=== PATIENT | female | born 1955 | race Caucasian/White ===

== ENCOUNTER 2018-12-01 00:47 | Emergency (ER) | payer MEDICARE ==
[~2018-12-01] VITALS: Ht 177.8 cm; Wt 120.2 kg
[~2018-12-01 00:47] MED LIST: AMLODIPINE BESYL5 M1 PO; BACTRIM DS TAB1 EACH PO; CRESTOR; DIFLUCAN150 MG PO; FLEXERIL PO; KEFLEX500 MG PO; NORCO 5-325 TA1 EAC1 PO; NORCO 5-325 TA1 EACH PO; TRAMADOL 50 MG50 MG PO; UNKNOWN CHOLESTEROL; ZESTRIL
[2018-12-01] MEDS ORDERED: NORVASC10 MG PO (01:04)
[2018-12-01] MEDS ORDERED: IBUPROFEN 600600 M1 PO (01:05)
[2018-12-01 01:40] VITALS: BP 168/98
== END 2018-12-01 01:40 | disposition home or self-care (01) ==
LOC: M.ERS 00:47
DX: S61.511A Laceration without foreign body of right wrist, initial encounter (principal); S80.02XA Contusion of left knee, initial encounter; I10 Essential (primary) hypertension; E78.00 Pure hypercholesterolemia, unspecified; F17.200 Nicotine dependence, unspecified, uncomplicated; Z98.890 Other specified postprocedural states; W18.39XA Other fall on same level, initial encounter; Y92.89 Other specified places as the place of occurrence of the external cause; Y93.61 Activity, american tackle football; Y99.8 Other external cause status

== ENCOUNTER 2019-07-10 13:20 | Emergency (ER) | payer MEDICARE ==
[~2019-07-10] VITALS: Ht 177.8 cm; Wt 104.3 kg
[~2019-07-10 13:20] MED LIST changes: +IBUPROFEN 600600 M1 PO; +NORVASC10 MG PO
[2019-07-10] MEDS ORDERED: KEFLEX500 M1 PO (14:33)
[2019-07-10 14:40] VITALS: BP 149/98
== END 2019-07-10 14:40 | disposition home or self-care (01) ==
LOC: M.ERS 13:20
DX: S51.012A Laceration without foreign body of left elbow, initial encounter (principal); I10 Essential (primary) hypertension; E78.00 Pure hypercholesterolemia, unspecified; W51.XXXA Accidental striking against or bumped into by another person, initial encounter; Y93.89 Activity, other specified; Y92.89 Other specified places as the place of occurrence of the external cause; Y99.8 Other external cause status

== ENCOUNTER 2019-07-23 17:40 | Emergency (ER) | payer MEDICARE ==
[~2019-07-23] VITALS: Ht 177.8 cm; Wt 95.3 kg
[~2019-07-23 17:40] MED LIST changes: +KEFLEX500 M1 PO
[2019-07-23] MEDS ORDERED: KEFLEX500 M2 PO (18:02)
[2019-07-23] MEDS ORDERED: DAKIN'S473 M2 TOP (18:02)
[2019-07-23 18:50] VITALS: BP 126/70
== END 2019-07-23 18:51 | disposition home or self-care (01) ==
LOC: M.ERS 17:40
DX: S51.012A Laceration without foreign body of left elbow, initial encounter (principal); I10 Essential (primary) hypertension; E78.00 Pure hypercholesterolemia, unspecified; X58.XXXA Exposure to other specified factors, initial encounter; Y93.89 Activity, other specified; Y92.89 Other specified places as the place of occurrence of the external cause; Y99.8 Other external cause status

== ENCOUNTER → 2019-08-05 | Outpatient (CLI) | payer MEDICARE ==
[~2019-08-05] MED LIST changes: +DAKIN'S473 M2 TOP; +KEFLEX500 M2 PO
== END ==
LOC: M.WC 07-30 08:00
DX: T86.828 Other complications of skin graft (allograft) (autograft) (principal); S51.002A Unspecified open wound of left elbow, initial encounter; H26.9 Unspecified cataract; E66.01 Morbid (severe) obesity due to excess calories; F32.9 Major depressive disorder, single episode, unspecified; F17.290 Nicotine dependence, other tobacco product, uncomplicated; Z68.31 Body mass index [BMI] 31.0-31.9, adult; Y83.2 Surgical operation with anastomosis, bypass or graft as the cause of abnormal reaction of the patient, or of later complication, without mention of misadventure at the time of the procedure; W18.09XA Striking against other object with subsequent fall, initial encounter; Y93.89 Activity, other specified; Y92.89 Other specified places as the place of occurrence of the external cause; Y99.8 Other external cause status

== ENCOUNTER → 2019-08-19 | Outpatient (CLI) | payer MEDICARE | LOC: M.WC 04:37 | DX: T81.30XD Disruption of wound, unspecified, subsequent encounter (principal); S51.002D Unspecified open wound of left elbow, subsequent encounter; H26.9 Unspecified cataract; E66.01 Morbid (severe) obesity due to excess calories; F32.9 Major depressive disorder, single episode, unspecified; F17.200 Nicotine dependence, unspecified, uncomplicated; Z68.31 Body mass index [BMI] 31.0-31.9, adult; X58.XXXD Exposure to other specified factors, subsequent encounter; Y83.8 Other surgical procedures as the cause of abnormal reaction of the patient, or of later complication, without mention of misadventure at the time of the procedure ==

== ENCOUNTER → 2019-11-19 | Outpatient (CLI) | payer MEDICARE | LOC: M.RAD 11-06 10:39 | PROVIDERS: ATTEND Family Medicine | DX: Z12.31 Encounter for screening mammogram for malignant neoplasm of breast (principal); N60.82 Other benign mammary dysplasias of left breast; N60.81 Other benign mammary dysplasias of right breast; M43.16 Spondylolisthesis, lumbar region; M25.78 Osteophyte, vertebrae; M48.061 Spinal stenosis, lumbar region without neurogenic claudication; M54.16 Radiculopathy, lumbar region; N30.90 Cystitis, unspecified without hematuria; K76.0 Fatty (change of) liver, not elsewhere classified; R63.4 Abnormal weight loss; R23.8 Other skin changes; R10.32 Left lower quadrant pain; R29.6 Repeated falls; M54.5 Low back pain ==

== ENCOUNTER 2019-11-25 20:28 | Inpatient (IN) | payer MEDICARE ==
[~2019-11-25] VITALS: Ht 177.8 cm; Wt 107.4 kg
[2019-11-25 20:33] VITALS: BP 135/98
[2019-11-25] MEDS ORDERED: NEURONTIN 300M300 M2 PO (20:35)
[2019-11-25] MEDS ORDERED: FOLIC ACID1 MG PO (20:35)
[2019-11-25 22:13] LABS: ABSOLUTE BASOPHILS 0.2 thou/uL (0.0-0.2); ABSOLUTE EOSINOPHILS 0.1 thou/uL (0.0-0.7); ABSOLUTE LYMPHOCYTES 1.6 thou/uL (0.8-5.3); ABSOLUTE MONOCYTES 1.1 thou/uL (0.0-1.2); ABSOLUTE NEUTROPHILS 13.3 thou/uL (1.6-8.1); BASOPHILS 1.3 %; EOSINOPHILS 0.4 %; HEMATOCRIT 26.8 % (37.0-47.0); HEMOGLOBIN 9.3 gm/dL (12.0-15.0); LYMPHOCYTES 9.9 %; MCH 45.9 pg (26.0-34.0); MCHC 34.5 g/dL (28.0-37.0); MCV 133.1 fL (80.0-100.0); MONOCYTES 6.6 %; MPV 8.2 fl. (7.2-11.1); NUCLEATED RBCS 0 /100WBC; PLATELET COUNT* 271 thou/uL (150-400); POLYS 81.8 %; RBC 2.02 mil/uL (4.20-5.00); RDW-CV 14.8 % (10.5-14.5); WBC 16.3 thou/uL (4.0-11.0)
[2019-11-25 22:22] LABS: CALCIUM 7.9 mg/dL (8.5-10.1); CREATININE 1.3 mg/dL (0.6-1.3)
[2019-11-25 22:24] LABS: INR 1.3; PROTIME 13.6 Seconds (9.20-11.50)
[2019-11-25 22:28] LABS: POTASSIUM 2.9 mmol/L (3.5-5.1)
[2019-11-25 22:33] LABS: ALBUMIN 2.4 g/dL (3.4-5.0); MAGNESIUM 1.3 mg/dL (1.8-2.4); TOTAL PROTEIN 6.1 g/dL (6.4-8.2)
[2019-11-26] VITALS (8 sets, daily range): BP systolic 90–125; BP diastolic 55–83
[2019-11-26 00:15] LABS: MACROCYTES 3+; PLATELET ESTIMATE ADEQUATE; TARGET CELLS 1+
[2019-11-26 00:46] LABS: ICTOTEST (BILI CONFIRMATORY) Negative (Negative); URINE BILIRUBIN 2+ (Negative); URINE BLOOD 3+ (Negative); URINE CLARITY CLEAR; URINE COLOR DARK YELLOW; URINE GLUCOSE-RANDOM NEGATIVE (Negative); URINE KETONES TRACE (Negative); URINE LEUKOCYTES-REFLEX TRACE (Negative); URINE NITRITE-REFLEX POSITIVE (Negative); URINE PROTEIN 1+ (Negative)
[2019-11-26 01:30] LABS: HYALINE CASTS 4-10 Moderate /LPF (None Seen); SQUAMOUS 4-10 Moderate /LPF (0-3)
[2019-11-26 01:31] LABS: BACTERIA-REFLEX >30 Many /HPF (None Seen); CRYSTALS None Seen /LPF (None Seen); URINE RBC 3-10 Few /HPF (0-2); URINE WBC-REFLEX >25 Many /HPF (0-5)
--- NOTE | 2019-11-26 11:19 | NUR ---
Pt is A&O. Resides at home with her twin grandsons, states that she has raised them since . Normally independent, but states that over the past 3 months, she has experienced falls and increased weakness, Pt states that she has a hard time standing for long periods of time. Grandsons assist with ADLs as needed. Pt states that she was at [facility] yesterday and fell twice. PT/OT evals ordered. Pt has a cane at home that she can use, but states that she does not feel safe using it. No hx of HH or SNF. Pt's PCP is Dr Gu in [place]. Cardiology and neuro consulted. Goal is home, following for HH needs at [place].
--- NOTE | 2019-11-26 11:33 | EKG ---
[place] [address] ELECTROCARDIOGRAM REPORT Name: LINDSEY LUKEHAIDER Ruelas Room: [address] ADM IN [facility].#: [id number] Admission: 11/26/19 Attend Phys: Wes West, Discharge: Date of : 57 Date of Service: 11/25/192041 Report #: [id number] THIS REPORT FOR: //name// [facility] ED Test Date: 2019-11-25 Test Time: 20:42:15 Pat Name: ARIK LUKE Department: Room: [facility] Gender: F Programming Development Project Manager: JOCY : 1955 Requested By: Aicha Gomez Order Number: [id number] MD: Yordy Dowling Measurements Intervals [place] Rate: 145 P: ID: QRS: 10 QRSD: 89 T: 204 QT: 307 QTc: 477 Interpretive Statements Atrial fibrillation Repol abnrm suggests ischemia, anterolateral No previous ECG available for comparison Electronically Signed On 11-26-2019 11:33:12 CDT by Yordy Dowling [email or web address] <ELECTRONICALLY SIGNED> By: Yordy Dowling MD, FACC 11/26/19 1133 41 41 Yordy Dowling MD, FAC /EPI
--- NOTE | 2019-11-26 14:42 | 2DMMODE ---
[place] [address] 2 D/M-MODE ECHOCARDIOGRAM Name: LINDSEY LUKEHAIDER Ruelas Room: [address] IN [place]#: [id number] Admission: 11/26/19 Attend Phys: Wes West, Discharge: Date of : 57 Date of Service: 11/26/19 1442 Report #: [id number] THIS REPORT FOR: cc: FAM - No family physician/PCP FAM - No family physician/PCP Yordy Dowling MD [facility] ~ APPROVED REPORT Study performed: 11/26/2019 10:53:43 EXAM: Comprehensive 2D, Doppler, and color-flow Echocardiogram Patient Location: In-Patient Room #: 209 Status: routine BSA: 2.24 HR: 75 bpm BP: 112/70 mmHg Rhythm: Atrial Fibrillation Other Information Study Quality: Good Indications Atrial Fibrillation 2D Dimensions IVSd: 13.45 (7-11mm) LVOT Diam: 20.82 (18-24mm) LVDd: 50.83 mm PWd: 12.73 (7-11mm) Ascending Ao: 36.43 (22-36mm) LVDs: 35.15 (25-40mm) Aortic Root: 31.54 mm Volumes Left Atrial Volume (Systole) LA ESV Index: 38.90 mL/m2 Aortic Valve AoV Peak Junior.: 1.47 m/s AO Peak Gr.: 8.68 mmHg LVOT Max P.72 mmHg AO Mean Gr.: 4.51 mmHg LVOT Mean P.62 mmHg LVOT Max V: 1.20 m/s AO V2 VTI: 23.22 cm LVOT Mean V: 0.74 m/s KEV (VTI): 3.28 cm2 LVOT V1 VTI: 22.40 [place] [address] 2 D/M-MODE ECHOCARDIOGRAM Name: ARIK LUKE Room: [address] IN [facility]#: [id number] Admission: 11/26/19 Attend Phys: Wes West, Discharge: Date of : 57 Date of Service: 11/26/19 1442 Report #: [id number] Mitral Valve MV Decel. Time: 204.39 ms MV PHT: 59.27 ms MVA (PHT): 3.71 cm2 TDI Medial E' Junior.: 0.22 m/s Lateral E' Junior.: 0.15 m/s Pulmonary Valve PV Peak Junior.: 0.91 m/s PV Peak Gr.: 3.29 mmHg Tricuspid Valve RAP Estimate: 5.00 mmHg TR Peak Gr.: 22.64 mmHg RVSP: 27.00 mmHg PA Pressure: 27.00 mmHg Left Ventricle The left ventricle is normal size. There is normal LV segmental wall motion. Mild concentric left ventricular hypertrophy. Left ventricular systolic function is normal. LVEF is 60-65%. This study is not technically sufficient to allow evaluation of the LV diastolic function due to atrial fibrillation. Right Ventricle The right ventricle is normal size. The right ventricular systolic function is normal. Atria Left atrium is mildly dilated. The right atrium size is normal. Aortic Valve Mild aortic valve sclerosis. No aortic regurgitation is present. There is no aortic valvular stenosis. Mitral Valve The mitral valve is normal in structure. Trace mitral regurgitation. No evidence of mitral valve stenosis. Tricuspid Valve The tricuspid valve is normal in structure. Mild tricuspid regurgitation. No pulmonary hypertension. Pulmonic Valve The pulmonary valve is normal in structure. [place] [address] 2 D/M-MODE ECHOCARDIOGRAM Name: ARIK LUKE Suraj Room: [address]#: [id number] Admission: 11/26/19 Attend Phys: Wes West, Discharge: Date of : 57 Date of Service: 11/26/19 1442 Report #: [id number] valvular regurgitation. Great Vessels The aortic root is normal in size. IVC is normal in size and collapses >50% with inspiration. Pericardium There is no pericardial effusion. <Conclusion> The left ventricle is normal size. Mild concentric left ventricular hypertrophy. Left ventricular systolic function is normal. LVEF is 60-65%. Left atrium is mildly dilated. Trace mitral regurgitation. Mild tricuspid regurgitation. No pulmonary hypertension. IVC is normal in size and collapses >50% with inspiration. <ELECTRONICALLY SIGNED> By: Yordy Dowling MD, FACC 11/26/19 1442 1442 144 Yordy Dowling MD, FACC /INF
--- NOTE | 2019-11-26 15:37 | NUR ---
PT OFF UNIT TO XRY FOR LP.
[2019-11-26 17:43] LABS: CSF GLUCOSE 57 mg/dl (40-70)
[2019-11-26 17:46] LABS: CSF CLARITY CLEAR; CSF COLOR COLORLESS; CSF RBC 0 /mm3; CSF WBC 1 /mm3 (0-10); VOLUME 10.5 ml
--- NOTE | 2019-11-26 18:29 | NUR ---
PT HAD LUMBAR PUNCTURE TODAY AND WILL IRIS CARDIOVERSION IN THE AM. TELE REVEALS AFIB IN THE 60S AT THIS TIME. HOLD CARDIZEM GTT AND PO FLECANIDE GIVE. WILL CONTINUE TO ASSESS.
[2019-11-26 18:41] LABS: CREATININE 1.1 mg/dL (0.6-1.3); POTASSIUM 3.4 mmol/L (3.5-5.1)
--- NOTE | 2019-11-26 19:39 | NUR ---
INSTRUCT PT TO LAY FLAT IN BED WITH HOB NO GREATER THAN 10 DREGREES S/P LUMBAR PUNCTURE. PLACE SCDS BILAT.
[2019-11-27] VITALS (15 sets, daily range): BP systolic 66–113; BP diastolic 30–69
--- NOTE | 2019-11-27 04:42 | NUR ---
ASSESSMENTS COMPLETED AT BEDSIDE, PLEASE REFER TO CHARTING FOR DETAILS. PT REMAINS ON BEDREST. MEDICATIONS ADMINISTERED PER MAR. HOURLY ROUNDING FOR SAFETY. PT REMAINS IN AFIB WITH PLANNED CARDIOVERSION IN AM. FALL PERCAUTIONS IN PLACE, BED ALARM ON AND CALL LIGHT WITHIN REACH.
[2019-11-27 05:33] LABS: ABSOLUTE BASOPHILS 0.2 thou/uL (0.0-0.2); ABSOLUTE EOSINOPHILS 0.5 thou/uL (0.0-0.7); ABSOLUTE LYMPHOCYTES 2.2 thou/uL (0.8-5.3); ABSOLUTE MONOCYTES 0.7 thou/uL (0.0-1.2); BASOPHILS 1.3 %; EOSINOPHILS 3.7 %; HEMATOCRIT 24.7 % (37.0-47.0); HEMOGLOBIN 8.6 gm/dL (12.0-15.0); LYMPHOCYTES 16.2 %; MCH 46.1 pg (26.0-34.0); MCHC 34.7 g/dL (28.0-37.0); MPV 8.2 fl. (7.2-11.1); NUCLEATED RBCS 0 /100WBC; PLATELET COUNT* 225 thou/uL (150-400); POLYS 73.8 %; RBC 1.86 mil/uL (4.20-5.00); RDW-CV 14.7 % (10.5-14.5); WBC 13.6 thou/uL (4.0-11.0)
[2019-11-27 06:02] LABS: ALBUMIN 2.2 g/dL (3.4-5.0); CALCIUM 7.7 mg/dL (8.5-10.1); CREATININE 0.9 mg/dL (0.6-1.3); POTASSIUM 3.4 mmol/L (3.5-5.1); TOTAL BILIRUBIN 1.2 mg/dL (<0.1-1.0); TOTAL PROTEIN 5.7 g/dL (6.4-8.2)
[2019-11-27 07:44] LABS: PLATELET ESTIMATE ADEQUATE
[2019-11-27 07:45] LABS: ANISOCYTOSIS 2+; MACROCYTES 2+; POIKILOCYTOSIS 1+
--- NOTE | 2019-11-27 11:21 | NUR ---
Pt to have cardioversion today at 3pm. CM spoke with AUTO BODY TECHNICIAN, per neuro, Pt needs to be transferred to a higher level of care for a neuro surgeon, for an EMG and other procedures that we do not offer here. Pt has no preference on either or [facility]'s. CM to initiate transfer tomorrow per AUTO BODY TECHNICIAN. Pt on [facility] gtt. Following.
--- NOTE | 2019-11-27 16:21 | NUR ---
PT RETURN FROM CRDIOVERSION. PT IN NSR.
--- NOTE | 2019-11-27 16:40 | TEE ---
[place] [address] TRANSESOPHAGEAL ECHOCARDIOGRAM Name: ARIK LUKE Suraj Room: [address] IN [place].#: [id number] Admission: 11/26/19 Attend Phys: Wes West, Discharge: Date of : 57 Date of Service: 11/27/19 1640 Report #: [id number] THIS REPORT FOR: cc: FAM - No family physician/PCP FAM - No family physician/PCP Asher Lindsey MD [facility] ~ APPROVED REPORT Study performed: 11/27/2019 14:50:08 EXAM: Comprehensive 2D, Doppler, and color-flow Echocardiogram Patient Location: In-Patient Room #: [facility] Status: routine BSA: 2.26 HR: 109 bpm BP: 118/82 mmHg Rhythm: Atrial Fibrillation Other Information Study Quality: Good Indications Atrial Fibrillation Echo Enhancing Agent Indication: Rule out Shunt Agent(s) / Amount(s) Used: Agitated Saline 20 cc Comments: 2 BUBBLE STUDIES Procedure After obtaining informed consent, patient underwent transesophageal echo in the [employer]. Type of Sedation : Conscious Sedation Sedation was administered by Toma Pimentel. Sedation start time: 1513 Case end Time: 1529 Sedation was achieved intravenously with: Versed (5) Fentanyl (75) Transesophageal probe was inserted and advanced into esophagus without difficulty by Asher Lindsey MD, [facility]. Echo enhancement indication: R/O Septal defect. Echo enhancement agent administered: Agitated Saline The IRIS was performed [place] [address] TRANSESOPHAGEAL ECHOCARDIOGRAM Name: ARIK LUKE Suraj Room: [address]#: [id number] Admission: 11/26/19 Attend Phys: Wes West, Discharge: Date of : 57 Date of Service: 11/27/19 [facility] Report #: [id number] Synchronized Cardioversion acheived with 50 Joules after 1 attempt(s). Rhythm following Synchronized Cardioversion: Normal Sinus Rhythm Throughout the procedure, the blood pressure, pulse oximetry, cardiac rhythm, and rate were monitored. The patient tolerated the procedure without adverse effects. Recovery from conscious sedation was uneventful and vital signs were stable. Left Ventricle The left ventricle is normal size. There is normal LV segmental wall motion. There is normal left ventricular wall thickness. Left ventricular systolic function is normal. The left ventricular ejection fraction is within the normal range. LVEF is 60-65%. Right Ventricle The right ventricle is normal size. The right ventricular systolic function is normal. Atria Left atrium is moderately dilated. No thrombus is visualized in the left atrium or appendage. The interatrial septum is intact with no evidence for an atrial septal defect. Right atrium is mildly dilated. Aortic Valve The aortic valve is normal in structure. No aortic regurgitation is present. There is no aortic valvular stenosis. Mitral Valve The mitral valve is normal in structure. Mild mitral regurgitation. No evidence of mitral valve stenosis. Tricuspid Valve The tricuspid valve is normal in structure. Mild tricuspid regurgitation. Pulmonic Valve The pulmonary valve is normal in structure. There is no pulmonic valvular regurgitation. Great Vessels The aortic root is normal in size. Pericardium There is no pericardial [place] [address] TRANSESOPHAGEAL ECHOCARDIOGRAM Name: ARIK LUKE Room: [address] IN .R.#: [id number] Admission: 11/26/19 Attend Phys: Wes West, Discharge: Date of : 57 Date of Service: 11/27/19 1640 Report #: [id number] <Conclusion> LVEF is 60-65%. Mild mitral regurgitation. Left atrium is moderately dilated. No thrombus is visualized in the left atrium or appendage. Right atrium is mildly dilated. The interatrial septum is intact with no evidence for an atrial septal defect. successful cardioversion from atrial tachycardia to normal sinus rhythm <ELECTRONICALLY SIGNED> By: Asher Lindsey MD, [facility] 11/27/19 1640 1640 [facility] Asher Lindsey MD, FACC /INF
[2019-11-28] VITALS: BP 99/62
[2019-11-28 04:04] VITALS: BP 106/64
[2019-11-28 05:04] LABS: ABSOLUTE BASOPHILS 0.2 thou/uL (0.0-0.2); ABSOLUTE EOSINOPHILS 0.7 thou/uL (0.0-0.7); ABSOLUTE LYMPHOCYTES 2.2 thou/uL (0.8-5.3); ABSOLUTE MONOCYTES 0.9 thou/uL (0.0-1.2); BASOPHILS 1.2 %; EOSINOPHILS 4.4 %; HEMOGLOBIN 8.7 gm/dL (12.0-15.0); LYMPHOCYTES 14.4 %; MCV 134.4 fL (80.0-100.0); MPV 8.8 fl. (7.2-11.1); NUCLEATED RBCS 0 /100WBC; PLATELET COUNT* 231 thou/uL (150-400); RBC 1.86 mil/uL (4.20-5.00); RDW-CV 14.7 % (10.5-14.5); WBC 14.9 thou/uL (4.0-11.0)
[2019-11-28 05:26] LABS: ALBUMIN 2.3 g/dL (3.4-5.0); CALCIUM 7.8 mg/dL (8.5-10.1); CREATININE 0.9 mg/dL (0.6-1.3); MAGNESIUM 1.5 mg/dL (1.8-2.4); POTASSIUM 4.1 mmol/L (3.5-5.1); TOTAL PROTEIN 5.7 g/dL (6.4-8.2)
[2019-11-28 06:16] LABS: MACROCYTES 3+; PLATELET ESTIMATE ADEQUATE
[2019-11-28 06:20] LABS: TOXIC GRANULATION 1+
[2019-11-28 08:15] VITALS: BP 105/61
--- NOTE | 2019-11-28 08:15 | NUR ---
ASSUMED PT. CARE AND RECEIVED REPORT AT 0730. PT A/OX4, VSS, MONITOR ON TRACING SR. PT. ON RA @ 95%. FULL ASSESSMENT COMPLETED, REFER TO CHARTING. PT. STATES WEAKNESS/TINGLING STILL PRESENT IN UPPER AND LOWER EXTREMETIES ALONG WITH DEXTERITY ISSUES. CALL LIGHT IN REACH, WILL CONTINUE WITH PLAN OF CARE.
--- NOTE | 2019-11-28 08:59 | NUR ---
CM initiated transfer to a tertiary hospital for further neurological testing, Pt preference is [facility] but is also open to [facility] if [facility] is unable to accept. CM faxed requested info to [facility], awaiting decision to accept. [facility] transfer team [phone] f:[phone]
[2019-11-28 12:26] VITALS: BP 110/65
[2019-11-28 12:41] VITALS: BP 110/65
--- NOTE | 2019-11-28 14:30 | EKG ---
[place] [address] ELECTROCARDIOGRAM REPORT Name: ARIK LUKE Room: [address] ADM [place] .[place].#: [id number] Admission: 11/26/19 Attend Phys: Wes West, Discharge: Date of : 57 Date of Service: 11/27/19 1355 Report #: [id number] THIS REPORT FOR: //name// [facility] Test Date: 2019-11-27 Test Time: 13:55:56 Pat Name: ARIK LUKE Department: Room: [address] Gender: F Level Vial Inspector: : 1955 Requested By: Asher Lindsey Order Number: [id number] Reading MD: Yordy Dowling Measurements Intervals [place] Rate: 107 P: [place]: QRS: 31 QRSD: 112 T: 157 QT: 435 QTc: 581 Interpretive Statements Sinus tachycardia Borderline low voltage, extremity leads Nonspecific T wave inversion diffusely prolonged QT interval Compared to ECG 11/25/2019 20:42:15 Prolonged QT interval now present Atrial fibrillation no longer present Electronically Signed On 11-28-2019 14:30:28 CDT by Yordy Dowling [email or web address] <ELECTRONICALLY SIGNED> By: Yordy Dowling MD, FACC 11/28/19 1430 1355 1355 Yordy Dowling MD, FACC /EPI
--- NOTE | 2019-11-28 16:20 | NUR ---
REPORT CALLED TO M/S TIANNA MOORE PT. TRANSFERED TO ROOM 107
--- NOTE | 2019-11-28 18:21 | NUR ---
Pt is AOx4 and on bedrest at this time. Pt has continued c/o of weakness. Pt c/o chronic back pain. lidocaine patch in place and PRN flexeril given. Pt is tolerating regular diet. Cao in place and patent. Hourly rounding complete. Will continue to monitor
[2019-11-28 20:00] VITALS: BP 105/63
--- NOTE | 2019-11-29 04:19 | NUR ---
PT A&O. ON RA. MAG REPLACED PER PROTOCOL. PRN FLEXERIL GIVEN FOR CHRONIC BACKPAIN. PT SLEEPING/RESTING THROUGH THE NIGHT. YADAV IN PLACE DRAINING DARK JESUS URINE. CALL LIGHT WITHIN REACH. WILL CONTINUE TO MONITOR.
[2019-11-29 07:37] VITALS: BP 114/81
--- NOTE | 2019-11-29 10:34 | EKG ---
[place] [address] ELECTROCARDIOGRAM REPORT Name: ARIK LUKE Room: [address] ADM IN .R.#: [id number] Admission: 11/26/19 Attend Phys: Wes West, Discharge: Date of : 57 Date of Service: 11/29/19 0854 Report #: [id number] THIS REPORT FOR: //name// [facility] Test Date: 2019-11-29 Test Time: 08:54:55 Pat Name: ARIK LUKE Department: Room: [address] Gender: F Improvement Intern: : 1955 Requested By: Nahum Weber Order Number: [id number] Attila MD: Perez Penn Measurements Intervals [place] Rate: 121 P: [place]: QRS: 36 QRSD: 100 T: 216 QT: 310 QTc: 440 Interpretive Statements Atrial fibrillation Low voltage, precordial leads Borderline repolarization abnormality Compared to ECG 11/27/2019 13:55:56 Sinus tachycardia no longer present T-wave abnormality no longer present Prolonged QT interval no longer present Electronically Signed On 11-29-2019 10:33:57 CDT by Perez Penn [email or web address] <ELECTRONICALLY SIGNED> By: Perez Penn MD, [facility] 11/29/19 1033 0854 0854 Perez Penn MD, [facility] /EPI
--- NOTE | 2019-11-29 12:47 | NUR ---
PT.CAME FROM TELEMETRY LAST EVENING. WAS TO POTENTIALLY GO TO ARU HERE. IS BACK IN A.FIB SO WILL TRANSFER BACK TO TELE SOON.
[2019-11-29 13:08] LABS: ANA INTERPRETATION Negative (Negative)
[2019-11-29 14:57] VITALS: BP 112/76
[2019-11-29 20:00] VITALS: BP 124/82
--- NOTE | 2019-11-29 20:00 | NUR ---
RECEIVED REPORT AND ASSUMED CARE OF PT, ASSESSMENT COMPLETED. PT C/O BACK PAIN, CHRONIC. REPOSITIONED WITH PT ASSIST. TELEMETRY ON SHOWING A-FIB. WILL CONT TO MONITOR AND ASSIST NEEDED.
[2019-11-30] VITALS: BP 127/86
[2019-11-30 04:00] VITALS: BP 146/77
[2019-11-30 06:00] LABS: CALCIUM 8.1 mg/dL (8.5-10.1); CREATININE 0.9 mg/dL (0.6-1.3); MAGNESIUM 1.5 mg/dL (1.8-2.4)
--- NOTE | 2019-11-30 07:45 | NUR ---
AWAKE FREQ DURING NIGHT WITH C/O BACK PAIN. ICE PACK EFFECTIVE. PT REFUSING TO TURN DUE TO THE PAIN, EDUCATION GIVEN. AT 0408 PT CONVERTED TO SR. NO CHANGE IN ASSESSMENT. HS GOALS OF REST AND SAFETY ACHIEVED. HOURLY ROUNDING OBSERVED.
[2019-11-30 09:12] VITALS: BP 124/64
[2019-11-30 12:00] VITALS: BP 99/56
--- NOTE | 2019-11-30 15:35 | NUR ---
Pt AOx4. Pt remained in the bed today and up with max assist d/t severe weakness. Pt tolerating cardiac diet. C/O chronic back pain, receiving PRN flexeril and lidocaine patch in place. Receiving IV decadron q6h and tolerating well. Hourly rounding complete will continue to monitor
[2019-11-30 16:00] VITALS: BP 121/52
--- NOTE | 2019-11-30 17:39 | NUR ---
PATIENT RESTING IN BED. UP WITH MAX ASSIST OR LALITHA LIFT. VSS ANDPATIENT IN NOAPPARNET SIGNS OF DISTRESS. HOURLY ROUNDING COMPLETDFOR PATIENT SAFETY.
[2019-11-30 20:00] VITALS: BP 119/86
--- NOTE | 2019-11-30 20:00 | NUR ---
RECEIVED REPORT AND ASSUMED CARE OF PT, ASSESSMENT COMPLETED. DISCUSSED CERVICAL EDEMA AND STEROIDS ALONG WITH NEEDING A NEUROSURGEON EVALUATION. PT ABLE TO MOVE SELF MORE IN BED THIS EVENING FOR COMFORT. CONT TO C/O LOW CHRONIC BACK PAIN. TELEMETRY ON SHOWING A-FIB AGAIN. WILL CONT TO MONITOR AND ASSIST NEEDED.
[2019-12-01] VITALS: BP 124/91
[2019-12-01 04:00] VITALS: BP 126/76
[2019-12-01 05:07] LABS: MCH 47.2 pg (26.0-34.0); MCV 131.3 fL (80.0-100.0); MPV 8.4 fl. (7.2-11.1); RBC 1.91 mil/uL (4.20-5.00); RDW-CV 14.8 % (10.5-14.5); WBC 13.2 thou/uL (4.0-11.0)
[2019-12-01 05:12] LABS: CALCIUM 8.6 mg/dL (8.5-10.1); CREATININE 1.1 mg/dL (0.6-1.3); MAGNESIUM 1.7 mg/dL (1.8-2.4); POTASSIUM 4.5 mmol/L (3.5-5.1)
--- NOTE | 2019-12-01 06:41 | NUR ---
AWAKE MOST OF NIGHT EVEN WITH MELATONIN GIVEN. MOVING SELF IN BED INCLUDING TURNING ONTO SIDE. TAKING ICE CHIPS AND FLUIDS WELL. URINE OUTPUT IMPROVED PER YADAV. TELEMETRY CONT TO SHOW A-FIB. NO CHANGE IN ASSESSMENT. HS GOALS OF REST AND SAFETY ACHIEVED. HOURLY ROUNDING OBSERVED.
[2019-12-01 08:00] VITALS: BP 128/68
--- NOTE | 2019-12-01 08:00 | NUR ---
ASSUMED CARE OF PATIENT, DEFER TO COMPUTER CHARTING. TUB TENDER TRACKING AFIB. ALERT ORIENTED - REPORTING HAVING NUMBNESS TINGLING IN ARMS, HANDS AND LEGS WHICH SHE REPORTS IS NOT NEW -CHRONIC. PATIENT DOES REPORT HAVING INCREASE WEAKNESS. REINFORCEMENT TEACHING ON SAFETY, CALL FOR ASSIST WHEN GETTING OUT OF BED, VERBALIZED UNDERSTANDING. HOB ELEVATED, CALL LIGHT WITHIN REACH. WILL MONITOR.
[2019-12-01 12:34] VITALS: BP 120/77
[2019-12-01 16:41] VITALS: BP 116/78
[2019-12-01 20:00] VITALS: BP 107/60
[2019-12-02] VITALS (8 sets, daily range): BP systolic 81–132; BP diastolic 48–76
[2019-12-02 05:00] LABS: CALCIUM 8.4 mg/dL (8.5-10.1); CREATININE 1.1 mg/dL (0.6-1.3); MAGNESIUM 1.9 mg/dL (1.8-2.4); POTASSIUM 4.9 mmol/L (3.5-5.1)
--- NOTE | 2019-12-02 07:07 | NUR ---
PT A+OX4. SLEPT THROUGH THE NIGHT WITHOUT INCIDENT. STILL REPORTING SEVERE WEAKNESS IN LEGS. PT STILL REPORTING CONSTIPATION. PAIN MEDICATION GIVEN @ BEDTIME. AFIB/FLUTTER. CALL LIGHT IN REACH. HOURLY ROUNDING FOR SAFETY.
[2019-12-02] MEDS ORDERED: ELIQUIS5 MG PO (08:59)
[2019-12-02] MEDS ORDERED: PREDNISONE 10 M10 MG PO (08:59)
[2019-12-02] MEDS ORDERED: FLECAINIDE ACET50 M1 PO (08:59)
[2019-12-02] MEDS ORDERED: OMEPRAZOLE40 MG PO (08:59)
[2019-12-02] MEDS ORDERED: ZANAFLEX4 MG PO (08:59)
[2019-12-02] MEDS ORDERED: MELATONIN5 M1 PO (08:59)
[2019-12-02] MEDS ORDERED: BACTRIM DS TAB1 EACH PO (08:59)
[2019-12-02] MEDS ORDERED: LEVOTHYROXINE25 MCG PO (08:59)
[2019-12-02] MEDS ORDERED: GABAPENTIN 100100 MG PO (08:59)
[2019-12-02] MEDS ORDERED: MAGNESIUM400 MG PO (09:02)
--- NOTE | 2019-12-02 13:57 | NUR ---
CM SPOKE TO THE PT TO DISCUSS DISCHARGE PLANNING. PT HAD INITIALLY DECLINED SNF TO CM, NURSING, AND PHYSICIAN. PT NOW IN AGREEMENT WITH SNF PLACEMENT AND REQUEST SNF AT [facility] SHE STATES ' I USED TO WORK THERE'. CM CALLED AND FAXED PT'S CLINICAL INFO TO [facility]. CM AWAITING RETURN CALL FROM [facility] ADMISSIONS. CM WILL REMAIN AVAILABLE TO ASSIST AND FOLLOW NEEDED. [facility] PHONE: [phone] FAX: [phone]
--- NOTE | 2019-12-02 16:45 | NUR ---
PT RESTING IN BED THROUGHOUT SHIFT. PT REPOSITIONED FREQUENTLY. PT DRINKING WELL AND TOLERATING PO. MEDS GIVEN FOR CONSTIPATION. PT HAS SPASTIC LEGS AND REPORTS NUMBNESS,TINGLING IN ALL EXTREMITIES BUT WORSE IN LEGS. PT UNABLE TO BEAR WT. PARTICIPATES IN THERAPY. PLAN TO DC TO SNF WHEN BED AVAILABLE
--- NOTE | 2019-12-02 18:57 | NUR ---
NO BM DESPITE MEDS AND DIGITAL STIMULATION. PT DENIES N/V. PASSING FLATUS
[2019-12-03 00:49] VITALS: BP 95/46
[2019-12-03 04:00] VITALS: BP 93/48
[2019-12-03 07:35] VITALS: BP 113/83
--- NOTE | 2019-12-03 07:56 | NUR ---
PT HAD MULTIPLE LARGE STOOLS LAST NIGHT AFTER REPORTING NO BM FOR 9 DAYS AND RECEIVING AN ENEMA AND LAXATIVES ON DAY SHIFT. PT REPORTS RELIEF. PT CONTINUES TO HAVE NEUROMUSCULAR AND MOTOR DIFFICULTIES. LEG WEAKNESS, DIFFICULTY TURNING TO THE RIGHT, CONSTANTLY DROPPING THINGS. PT VERBALIZES CONCERNS ON WANTING TO FIGURE OUR WHAT'S WRONG WITH HER THIS IS NOT HER BASELINE.
[2019-12-03 08:00] VITALS: BP 113/83
--- NOTE | 2019-12-03 11:22 | NUR ---
CM INFORMED BY THE PHYSICIAN OF THE NEED TO INITIATE TRANSFER FOR THE PT PER NUROLOGY RECCOMMENDATIONS. REASON FOR TRANSFER: RHUMATOLOGY/SERVICES NOT AVAILABLE AT OUR FACILITY, SENDING PHYSICIAN: DR. CUELLAR, BED: TELE, FACILITY: OR [facility]. CM SPOKE TO TRANSFER TEAM TO INFORM OF THE NEED TO INITIATE TRANSFER FOR THE PT. TRANSFER TEAM INFORMS THAT 'AT THIS TIME WE ARE CLOSED TO INPT TRANSFERS, AND NO BEDS AVALIABLE AT THIS TIME'. CM SPOKE TO HOUSE SUPEVISOR AT [facility] AND SHE INFORMS THAT THE FACILTY 'HAS BED AVAILABILITY. FAX PT'S CLINICAL INFO'. CM FAXED PT'S CLINICAL INFO AND PROVIDED THE PHYSICIANS CONTACT INFO FOR DR-TO-DR CALL. CM AWAITING RETURN CALL FROM [facility] ANALYT[facility] LEAD TO DISCUSS ABILIY TO ACCEPT THE PT. CM WILL REMAIN AVAILABLE TO ASSIST AND FOLLOW NEEDED.
[2019-12-03 11:48] VITALS: BP 91/63
--- NOTE | 2019-12-03 15:05 | NUR ---
PT TRANSFERRED TO [facility] AT THIS TIME. REPORT GIVEN TO MARTIN WHO ASSUMED PT CARE WITHOUT FURTHER QUESTIONS. PT TAKEN BY EMS VIA CART TO AMBULANCE.
--- NOTE | 2019-12-04 12:08 | CON ---
[address] [address] CONSULTATION Name: ARIK LUKE Room: [address] IN [place].#: [id number] Admission: 11/26/19 Attend Phys: Wes West MD Discharge: 12/03/19 Date of : 57 Report #: [id number] THIS REPORT FOR: //name// cc: PARIS Fontaine family physician/PCP PARIS Fontaine family physician/PCP ~ THIS REPORT FOR: //name// CC: Wes West FAM physician/PCP DATE OF SERVICE: 11/26/2019 HISTORY OF PRESENT ILLNESS: This is a 64-year-old female patient who was discussed with Emergency Room physician multiple times last night. I came and saw the patient last night and saw the patient again this morning. The patient is admitted with weakness in all 4 extremities. Initially, she said it is going on for a few weeks, but subsequently, it became clear that is going on for at least 3 months. She has multiple abnormalities including hypokalemia, hypocalcemia, hypomagnesemia, but nothing which can explain the patient's what looks like a profound weakness leading to multiple falls. She has anemia, but she has anemia even in the past. For some reason, her white count is up and she appeared to have a urinary tract infection. REVIEW OF SYSTEMS: A 14-point review of system was carried out and shows a new onset atrial fibrillation. She is getting multiple medications. As an emergency, CT angiogram of the head and neck was done by Emergency Room physician, which was unremarkable. She did have an MRI of the head and cervical spine and that also did not show, which can explain the patient's pathology. She has no evidence of any stroke. She does have a spinal stenosis, which may cause weakness, but it is not severe enough to cause so much symptom, but that need to be considered in the differential. This was a relevant 14-point review of system. PAST MEDICAL HISTORY: Positive for this weakness. FAMILY HISTORY: Unremarkable. SOCIAL HISTORY: She drinks alcohol occasionally. PHYSICAL EXAMINATION: Indicates she is alert, responsive, able to follow simple and complex commands. Her higher function and cranial nerve examination appear unremarkable. She is profoundly weak in the upper and lower extremity. Weakness is mostly proximal, but her position and touch is intact. Her reflexes are absent, but it is difficult to tell because she has both replaced knees and ankle, sometime are absent at this stage, anyway. In the upper extremities, we can elicit reflexes to some extent. She does not appear [place] [address] CONSULTATION Name: ARIK LUKE Room: [address]#: [id number] Admission: 11/26/19 Attend Phys: Wes West MD Discharge: 12/03/19 Date of : 57 Report #: [id number] sign. There is no meningeal sign. She had atrial fibrillation and the Cardiology note was reviewed. IMAGING STUDIES: I reviewed all her imaging studies. IMPRESSION: It is not clear what the etiology of the patient's symptoms is. I had considered the possibility of Guillain-Melville syndrome, but the paralysis is not really ascending but Guillain-Melville can present with different presentation. Myopathy was considered, but higher CPK, TSH and vitamin B12 is normal. I think we should do some workup including spinal fluid to see if there is significantly raised protein. We ____ treat the systemic problems including UTI and electrolyte imbalances. If this workup is unremarkable, then she will need a perineoplastic workup including workup for Eaton-Lambert syndrome, but those voltage-gated calcium channel antibodies has to be sent as an outpatient because of the hospital policy. More than 50 minutes of time was spent taking care of this patient today and majority of that time was spent counseling and coordinating. <ELECTRONICALLY SIGNED> By: Bruce Cabral MD 12/04/19 1208 1203 1223Prakesh Cabral MD /nt
== END 2019-12-03 15:00 | disposition short-term general hospital (02) | DRG 308 ==
LOC: M.ERS 20:28 → M.TBA-ER 11-26 04:28 → M.2W 11-26 04:28 → M.ORTHSURG 11-28 16:46 → M.2W 11-29 15:46
PROVIDERS: Emergency Medicine; Internal Medicine; Internal Medicine Cardiovascular Disease; Nurse Practitioner; Psychiatry & Neurology Neuromuscular Medicine; ADMIT Internal Medicine; ATTEND Internal Medicine
PROC: B24BZZ4 Ultrasonography of Heart with Aorta, Transesophageal (ICD-10-PCS; principal; 2019-11-27)
DX: I48.91 Unspecified atrial fibrillation (principal); I50.33 Acute on chronic diastolic (congestive) heart failure; R65.10 Systemic inflammatory response syndrome (SIRS) of non-infectious origin without acute organ dysfunction; D68.69 Other thrombophilia; M47.12 Other spondylosis with myelopathy, cervical region; M50.01 Cervical disc disorder with myelopathy, high cervical region; N30.01 Acute cystitis with hematuria; I11.0 Hypertensive heart disease with heart failure; E87.6 Hypokalemia; Z79.899 Other long term (current) drug therapy; M62.81 Muscle weakness (generalized); E83.42 Hypomagnesemia; E66.9 Obesity, unspecified; F17.210 Nicotine dependence, cigarettes, uncomplicated; E03.9 Hypothyroidism, unspecified; M48.02 Spinal stenosis, cervical region; E78.00 Pure hypercholesterolemia, unspecified; G89.29 Other chronic pain; M54.9 Dorsalgia, unspecified; G62.9 Polyneuropathy, unspecified; D64.9 Anemia, unspecified; G83.89 Other specified paralytic syndromes; Z20.828 Contact with and (suspected) exposure to other viral communicable diseases; Z68.34 Body mass index [BMI] 34.0-34.9, adult

== ENCOUNTER 2019-12-12 11:47 | Observation (INO) | payer MEDICARE ==
[~2019-12-12] VITALS: Ht 177.8 cm; Wt 112.0 kg
[~2019-12-12 11:47] MED LIST changes: +ELIQUIS5 MG PO; +FLECAINIDE ACET50 M1 PO; +FOLIC ACID1 MG PO; +GABAPENTIN 100100 MG PO; +LEVOTHYROXINE25 MCG PO; +MAGNESIUM400 MG PO; +MELATONIN5 M1 PO; +NEURONTIN 300M300 M2 PO; +OMEPRAZOLE40 MG PO; +PREDNISONE 10 M10 MG PO; +ZANAFLEX4 MG PO
[2019-12-12 12:12] LABS: ABSOLUTE EOSINOPHILS 0.4 thou/uL (0.0-0.7); ABSOLUTE MONOCYTES 0.9 thou/uL (0.0-1.2); ABSOLUTE NEUTROPHILS 10.7 thou/uL (1.6-8.1); BASOPHILS 0.2 %; EOSINOPHILS 2.9 %; HEMATOCRIT 26.4 % (37.0-47.0); HEMOGLOBIN 9.1 gm/dL (12.0-15.0); MCH 43.9 pg (26.0-34.0); MCHC 34.6 g/dL (28.0-37.0); MCV 126.7 fL (80.0-100.0); MONOCYTES 6.5 %; MPV 7.9 fl. (7.2-11.1); NUCLEATED RBCS 0 /100WBC; PLATELET COUNT* 244 thou/uL (150-400); POLYS 76.4 %; RBC 2.09 mil/uL (4.20-5.00)
[2019-12-12 12:21] LABS: CALCIUM 8.6 mg/dL (8.5-10.1); CREATININE 1.1 mg/dL (0.6-1.3); POTASSIUM 3.7 mmol/L (3.5-5.1)
[2019-12-12 12:23] LABS: INR 1.2; PROTIME 12.7 Seconds (9.20-11.50)
[2019-12-12 12:32] LABS: ALBUMIN 2.4 g/dL (3.4-5.0); TOTAL BILIRUBIN 0.5 mg/dL (<0.1-1.0)
[2019-12-12 13:14] LABS: MACROCYTES 3+; OVALOCYTES 1+; PLATELET ESTIMATE ADEQUATE; TARGET CELLS 1+
[2019-12-12 15:44] VITALS: BP 105/72
--- NOTE | 2019-12-12 16:04 | EKG ---
[place] [address] ELECTROCARDIOGRAM REPORT Name: LINDSEY LUKERICALOK Ruelas Room: [address] M.R.#: [id number] Admission: 12/12/19 Attend Phys: Ananth Coreas Discharge: Date of : 57 Date of Service: 12/12/19 1156 Report #: [id number] THIS REPORT FOR: //name// [facility] ED Test Date: 2019-12-12 Test Time: 11:56:08 Pat Name: ARIK LUKE Department: Room: [facility] Gender: F Station Operator: YUSUF : 1955 Requested By: Joanne Espinosa Order Number: [id number] MD: Asher Lindsey Measurements Intervals [place] Rate: 127 P: MD: QRS: 14 QRSD: 107 T: 197 QT: 321 QTc: 467 Interpretive Statements Atrial fibrillation Abnormal T, consider ischemia, lateral leads Compared to ECG 11/29/2019 08:54:55 no change Electronically Signed On 12-12-2019 16:03:52 CDT by Asher Lindsey [email or web address] <ELECTRONICALLY SIGNED> By: Asher Lindsey MD, [facility] 12/12/19 1603 1156 1156 Asher Lindsey MD, [facility] /EPI
[2019-12-12 16:30] VITALS: BP 94/52
[2019-12-12 20:00] VITALS: BP 110/68
[2019-12-13] VITALS: BP 136/80
[2019-12-13 04:00] VITALS: BP 117/59
[2019-12-13 08:00] VITALS: BP 114/54
[2019-12-13 12:00] VITALS: BP 96/50
[2019-12-13] MEDS ORDERED: DILTIAZEM 24HR180 M1 PO (12:37)
[2019-12-13] MEDS ORDERED: LANOXIN 0.25M0.25 M1 PO (12:37)
[2019-12-13 14:21] VITALS: BP 96/50
[2019-12-13] MEDS ORDERED: NORCO 10-325 T1 EACH PO (15:11)
== END 2019-12-13 16:55 ==
LOC: M.ERS 11:47 → M.TBA-ER 13:07 → M.2W 15:55
PROVIDERS: Personal Emergency Response Attendant; ADMIT Internal Medicine; ATTEND Internal Medicine
DX: I48.20 Chronic atrial fibrillation, unspecified (principal); E66.01 Morbid (severe) obesity due to excess calories; I10 Essential (primary) hypertension; K21.9 Gastro-esophageal reflux disease without esophagitis; M79.2 Neuralgia and neuritis, unspecified; L97.829 Non-pressure chronic ulcer of other part of left lower leg with unspecified severity; M48.02 Spinal stenosis, cervical region; E03.9 Hypothyroidism, unspecified; E83.42 Hypomagnesemia; R53.1 Weakness; F17.210 Nicotine dependence, cigarettes, uncomplicated; Z79.899 Other long term (current) drug therapy; Z20.828 Contact with and (suspected) exposure to other viral communicable diseases; Z68.35 Body mass index [BMI] 35.0-35.9, adult

== ENCOUNTER 2020-04-15 12:53 | Inpatient (IN) | payer MEDICARE, MEDICAID ==
[~2020-04-15] VITALS: Ht 177.8 cm; Wt 82.6 kg
[~2020-04-15 12:53] MED LIST changes: +DILTIAZEM 24HR180 M1 PO; +LANOXIN 0.25M0.25 M1 PO; +NORCO 10-325 T1 EACH PO
[2020-04-15 13:00] VITALS: BP 85/36
[2020-04-15] MEDS ORDERED: IVERMECTIN3 MG PO (13:10)
[2020-04-15] MEDS ORDERED: DIGOX125 MCG PO (13:11)
[2020-04-15] MEDS ORDERED: ONE-DAILY MULT1 EAC1 PO (13:12)
[2020-04-15] MEDS ORDERED: D3-200050 MCG PO (13:13)
[2020-04-15] MEDS ORDERED: ZINC SULFATE220 MG PO (13:13)
[2020-04-15] MEDS ORDERED: C-10001000 MG PO (13:13)
[2020-04-15] MEDS ORDERED: ZOFRAN4 MG PO (13:14)
[2020-04-15] MEDS ORDERED: PROCEL PO (13:14)
[2020-04-15 13:30] LABS: HEMATOCRIT 26.7 % (37.0-47.0); MCH 33.6 pg (26.0-34.0); MCHC 33.8 g/dL (28.0-37.0); MCV 99.4 fL (80.0-100.0); MPV 9.7 fl. (7.2-11.1); NUCLEATED RBCS 0 /100WBC; PLATELET COUNT* 308 thou/uL (150-400); RBC 2.69 mil/uL (4.20-5.00); RDW-CV 15.6 % (10.5-14.5); WBC 10.1 thou/uL (4.0-11.0)
[2020-04-15 13:35] LABS: CALCIUM 8.2 mg/dL (8.5-10.1); CREATININE 2.7 mg/dL (0.6-1.3); POTASSIUM 3.4 mmol/L (3.5-5.1)
[2020-04-15 13:37] LABS: APTT 29.3 Seconds (25.0-31.3); INR 1.3; PROTIME 13.5 Seconds (9.20-11.50)
[2020-04-15 13:39] LABS: ALBUMIN 1.4 g/dL (3.4-5.0); TOTAL BILIRUBIN 1.1 mg/dL (<0.1-1.0); TOTAL PROTEIN 6.1 g/dL (6.4-8.2)
--- NOTE | 2020-04-15 14:10 | NUR ---
RIGHT BASILIIC VESSEL ACCESSED FOR 4 MACEDONIAN SINGLE LUMEN PICC. LINE PRE-TRIMMED TO 46CM AND ADVANCED TO THE ZERO MAX WITH NO REISISTANCE MET. UPPER ARM CIRCUMFERENCE ABOVE INSERTION SITE= 12". SHERLOCK MAGNET AND 3CG CONFIRMATION OF TIP TERMINATION AT THE CAVOATRIAL JUNCTION APPRECIATED. GUIDWIRE REMONVED, LINE FLUSHED AND INSERTION SITE DRESSED. REPORT GIVEN TO GIORGIO WYNN.
[2020-04-15 14:15] LABS: ABSOLUTE EOSINOPHILS 0.1 thou/uL (0.0-0.7); ABSOLUTE LYMPHOCYTES 2.6 thou/uL (0.8-5.3); ABSOLUTE MONOCYTES 0.8 thou/uL (0.0-1.2); ABSOLUTE NEUTROPHILS 6.6 thou/uL (1.6-8.1); ATYPICAL LYMPHS 1 %; TARGET CELLS 1+
[2020-04-15 14:16] LABS: ANISOCYTOSIS 1+; MACROCYTES 1+; PLATELET ESTIMATE ADEQUATE
[2020-04-15 16:29] LABS: URINE BILIRUBIN NEGATIVE (Negative); URINE BLOOD NEGATIVE (Negative); URINE CLARITY SL CLOUDY; URINE COLOR DARK YELLOW; URINE GLUCOSE-RANDOM NEGATIVE (Negative); URINE KETONES TRACE (Negative); URINE LEUKOCYTES-REFLEX 2+ (Negative); URINE NITRITE-REFLEX NEGATIVE (Negative); URINE PROTEIN TRACE (Negative); URINE SPECIFIC GRAVITY 1.025 (1.005-1.030)
--- NOTE | 2020-04-15 16:35 | EKG ---
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1955 Requested By: Ge Tuttle Order Number: [id number] MD: Perez Penn Measurements Intervals [place] Rate: 69 P: 44 AL: 173 QRS: 24 QRSD: 89 T: 31 QT: 518 QTc: 555 Interpretive Statements Sinus rhythm Borderline low voltage, extremity leads Prolonged QT interval Compared to ECG 12/12/2019 11:56:08 Prolonged QT interval now present Atrial fibrillation no longer present T-wave abnormality no longer present Possible ischemia no longer present Electronically Signed On 04-15-2020 16:35:17 FRUIT WASHER by Perez Penn [email or web address] <ELECTRONICALLY SIGNED> By: Perez Penn MD, [facility] 04/15/20 1635 1301 1301 Perez Penn MD, [facility] /EPI
[2020-04-15 16:36] LABS: BACTERIA-REFLEX >30 Many /HPF (None Seen); HYALINE CASTS >10 Many /LPF (None Seen); MUCUS None Seen strn/LPF (None Seen); SQUAMOUS 0-3 Few /LPF (0-3)
[2020-04-15 16:37] LABS: CRYSTALS None Seen /LPF (None Seen); URINE RBC None Seen /HPF (0-2); URINE WBC-REFLEX >25 Many /HPF (0-5)
--- NOTE | 2020-04-15 17:31 | NUR ---
LATE ENTRY FOR 1709: PER DR PAULSON PAUSED PTS LEVOPHED. WILL CONTINUE TO MONITOR BLOOD PRESSURE AND HE WILL COME BACK TO EVAL PT AGAIN.
[2020-04-15 18:00] VITALS: BP 98/51
[2020-04-15 21:48] VITALS: BP 103/62
[2020-04-15 22:18] VITALS: BP 103/62
[2020-04-15 22:40] VITALS: BP 108/65
--- NOTE | 2020-04-16 02:47 | NUR ---
ASSUMED CARE OF PT AT 2240. PT IS CONFUSED. VSS. VARUN. NO COMPLAINTS OF PAIN. PT HAS YAADV IN PLACE. PT HAS A HUGE EXCORIATION ON COCCYX. PT IS IN SINUS RYTHM ON THE TELEMETRY. NEURO CONSULTED FOR AMS. PT IS SLEEPING QUIETLY IN BED. RESPIRATIONS ARE EVEN AND NONLABORED. WILL CONTINUE TO MONITOR PT.
[2020-04-16 04:00] VITALS: BP 106/60
[2020-04-16 07:30] VITALS: BP 107/40
--- NOTE | 2020-04-16 09:36 | NUR ---
CM ATTEMPTED TO SPEAK TO THE PT VIA THE HOSPITAL ROOM PHONE TO DISCUSS CM ASSESSMENT, PT IS CURRENTLY UNDER ENHANCED PRECAUTIONS FOR POSSIBLE COVID AND PENDING PCR RESULTS. PT ALERT BUT FORGETUL. REVIEW OF PT'S CHART INFORMS THAT PT IS CURRENTLY AT [facility]. 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 PT USES A WHEELCHAIR AND WALKER FOR MOBILITY. PT ABLE TO FEED HERSELF. JOSE ANGEL INFORMS THAT THE PT RECENTLY RECOVERED FROM COVID AND HAD SPEND 21 DAYS IN ISOLATION. PLAN FOR PT TO RETURN TO [facility] AT D/C. CM WILL REMAIN AVAILABLE TO ASSIST AND FOLLOW NEEDED. [facility] PHONE: [phone] FAX: [phone]
[2020-04-16 12:00] VITALS: BP 115/66; BP 122/71
--- NOTE | 2020-04-16 12:00 | NUR ---
PT IS AWAKE AND ALERT. ORIENTED TO PERSON, PLACE, TIME, & SITUATION. REQUESTING SOMETHING TO EAT. DR. PAULSON HERE KNOW.
--- NOTE | 2020-04-16 13:44 | NUR ---
WOUND NURSE: PATIENT WAS SEEN TODAY TO ADDRESS PAINFUL RED, MACULAR RASH ON BILATERAL BUTTOCKS. CLEANSED THE AFFECTED AREA WITH SOAP AND WATER, RINSED WITH WATER, THEN PATTED DRY. APPLIED MIXTURE OF ZINC OXIDE (Z-GUARD) AND NYSTATIN POWDER TOPICALLY. THIS WAS TOLERATED WELL BY THE PATIENT. PATIENT ALSO HAS A WOUND ON THE DORSAL ASPECT OF HER RIGHT 3RD TOE MEASURING 0.3 X 0.3 X 0.3 CM. THIS IS FULL THICKNESS WITH LIGHT CREAM COLORED SHINY TISSUE IN THE BASE OF THE BED. THERE IS MINIMAL SEROUS DRAINGE. CLEANSED WITH SOAP AND WATER, RINSED, THEN PATTED DRY. APPLIED AQUACEL AG TO THE WOUND AND SECURED IT IN PLACE WITH A BANDAID.
--- NOTE | 2020-04-16 13:48 | 2DMMODE ---
[place] [address] 2 D/M-MODE ECHOCARDIOGRAM Name: NATIVIDAD LUKEALOK Ruelas Room: [place] [address] ADM IN Afsaneh#: [id number] Admission: 04/15/20 Attend Phys: Dragan Calix Discharge: Date of : 57 Date of Service: 04/16/20 1348 Report #: [id number] THIS REPORT FOR: cc: Jaycob Lagunas MD, Dennis R MD [place], Michael J. MD [facility] ~ APPROVED REPORT Study performed: 04/16/2020 09:59:04 EXAM: Comprehensive 2D, Doppler, and color-flow Echocardiogram Patient Location: In-Patient Room #: [facility] Status: routine BSA: 2.23 HR: 80 bpm BP: 106/60 mmHg Rhythm: NSR Other Information Study Quality: Good Indications Syncope 2D Dimensions IVSd: 12.85 (7-11mm) LVOT Diam: 19.39 (18-24mm) LVDd: 52.35 mm PWd: 12.45 (7-11mm) Ascending Ao: 33.98 (22-36mm) LVDs: 25.86 (25-40mm) Aortic Root: 34.22 mm Volumes Left Atrial Volume (Systole) LA ESV Index: 41.90 mL/m2 Aortic Valve AoV Peak Junior.: 1.73 m/s AO Peak Gr.: 11.96 mmHg LVOT Max P.68 mmHg AO Mean Gr.: 5.19 mmHg LVOT Mean P.79 mmHg LVOT Max V: 1.47 m/s AO V2 VTI: 32.21 cm LVOT Mean V: 0.89 m/s KEV (VTI): 2.73 cm2 LVOT V1 VTI: 29.73 [place] [address] 2 D/M-MODE ECHOCARDIOGRAM Name: ARIK LUKE Room: [address] IN [facility]#: [id number] Admission: 04/15/20 Attend Phys: Dragan Calix Discharge: Date of : 57 Date of Service: 04/16/20 1348 Report #: [id number] Mitral Valve E/A Ratio: 1.46 MV Decel. Time: 186.47 ms MV E Max Junior.: 0.91 m/s MV PHT: 54.08 ms MVA (PHT): 4.07 cm2 TDI E/Lateral E': 5.69 E/Medial E': 6.07 Medial E' Junior.: 0.15 m/s Lateral E' Junior.: 0.16 m/s Pulmonary Valve PV Peak Junior.: 1.38 m/s PV Peak Gr.: 7.66 mmHg Tricuspid Valve RAP Estimate: 5.00 mmHg TR Peak Gr.: 25.36 mmHg RVSP: 30.00 mmHg PA Pressure: 30.00 mmHg Left Ventricle The left ventricle is normal size. There is normal LV segmental wall motion. Mild concentric left ventricular hypertrophy. Left ventricular systolic function is normal. LVEF is 60-65%. The left ventricular diastolic function is normal. Right Ventricle The right ventricle is normal size. The right ventricular systolic function is normal. Atria Left atrium is mildly dilated. The right atrium size is normal. Aortic Valve The aortic valve is normal in structure. No aortic regurgitation is present. There is no aortic valvular stenosis. Mitral Valve The mitral valve is normal in structure. Trace mitral regurgitation. No evidence of mitral valve stenosis. Tricuspid Valve The tricuspid valve is normal in structure. Mild tricuspid regurgitation. The RVSP is 30-[place] [address] 2 D/M-MODE ECHOCARDIOGRAM Name: ARIK LUKE Room: [address] IN [facility]#: [id number] Admission: 04/15/20 Attend Phys: Dragan Calix Discharge: Date of : 57 Date of Service: 04/16/20 1348 Report #: [id number] Pulmonic Valve The pulmonary valve is normal in structure. There is no pulmonic valvular regurgitation. Great Vessels The aortic root is normal in size. IVC is normal in size and collapses >50% with inspiration. Pericardium There is no pericardial effusion. <Conclusion> The left ventricle is normal size. Mild concentric left ventricular hypertrophy. Left ventricular systolic function is normal. LVEF is 60-65%. The left ventricular diastolic function is normal. There is normal LV segmental wall motion. Left atrium is mildly dilated. Trace mitral regurgitation. Mild tricuspid regurgitation. The RVSP is 30-35 mmHg. IVC is normal in size and collapses >50% with inspiration. <ELECTRONICALLY SIGNED> By: Yordy Dowling MD, FACC 04/16/20 1348 1348 1348 Yordy Dowling MD, FACC /INF
--- NOTE | 2020-04-16 14:08 | NUR ---
Infection Prevention Note: [facility] on 03/30/20 and 04/01/20. The patient also had Negative Covid PCR tests on 03/16/20, 03/18/20, and 03/24/20.
--- NOTE | 2020-04-16 15:38 | NUR ---
PT TRANSFERING TO ROOM 311. REPORT CALL TO LINO WYNN. REPEAT BLOOD SUGAR NOW 325. NO C/O AT THIS TIME. AT BEDSIDE. PT WILL TRANSFER VIA W/C ON 02 AT 3L PER NC.
--- NOTE | 2020-04-16 16:22 | NUR ---
PT COULDN'T FIND HER PHONE CALLED [facility]. 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 PT HAS BEEN ON PHONE AND WATCHING T.V. TURNED Q 2 HOURS. 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 LUNGS CLEAR, HEART TONES REGULAR, +BS X 4 QUADS. PEDAL PULSES PRESENT. CALL LIGHT WITHIN REACH. WILL CONTINUE TO MONITOR.
[2020-04-16 20:00] VITALS: BP 108/68
[2020-04-17] VITALS: BP 118/64
[2020-04-17 04:00] VITALS: BP 96/60
--- NOTE | 2020-04-17 04:03 | NUR ---
ASSUMED PT CARE AT APPROX 1930. PT IS AWAKE AND ORIENTED X4. PT IS NOT IN DISTRESS, NO DESATURATIONS NOTED ON ROOM AIR. PT IS TRACING SR w/ 1D AVB ON THE OPERATIONS PLANNER. PT C/O COCCYGEAL PAIN/BACK PAIN, PARTIALLY RELIEVED BY PAIN MEDS GIVEN PER JUN. POSITION CHANGES DONE AND PERINEAL AND WOUND CARE DONE ON HER EXCORIATED BOTTOM. NO ACUTE CHANGES THROUGHOUT THIS SHIFT. CALL LIGHT WITHIN REACH. HOURLY ROUNDING DONE FOR PT SAFETY. FALL PRECAUTIONS IN REACH. WCTM
--- NOTE | 2020-04-17 07:10 | NUR ---
CHANGE OF SHIFT REPORT GIVEN PATIENT SEEN AT BEDSIDE, IN BED ASLEEP ASSUMED PATIENT CARE
[2020-04-17 08:00] VITALS: BP 101/54
[2020-04-17 12:00] VITALS: BP 108/75
[2020-04-17 14:19] LABS: CALCIUM 7.6 mg/dL (8.5-10.1); CREATININE 2.1 mg/dL (0.6-1.3); POTASSIUM 3.1 mmol/L (3.5-5.1)
[2020-04-17 15:16] VITALS: BP 108/75
--- NOTE | 2020-04-17 15:22 | NUR ---
CM SCHEDULED TRANSPORTATION W/[facility], SPK W/LANA BTWN [phone] PICKUP TIME AT [facility]. CM NOTIFIED PT'S RN, JOSE ANGEL AT [facility] AND PT FAMILY. ALL AGREEABLE TO PLAN.
--- NOTE | 2020-04-17 18:20 | NUR ---
PATIENT DISCHARGED TO SNF [facility] AND HEART MONITOR AND [facility] REMOVED PERSONAL BELONGINGS RETURNED DC PAPERWORK GIVEN AND COPY OF CHART SENT SNF GIVEN TELEPHONE REPORT PRIOR TO DC PATIENT LEFT VIA STRETCHER VAN
--- NOTE | 2020-04-19 21:14 | CON ---
[address] [address] CONSULTATION Name: ARIK LUKE Suraj Room: [address] IN [place].#: [id number] Admission: 04/15/20 Attend Phys: Flaca Marie Discharge: 04/17/20 Date of : 57 Report #: [id number] THIS REPORT FOR: cc: Jaycob Lagunas MD, Dennis R MD ~ Bruce Cabral MD DATE OF SERVICE: 04/16/2020 HISTORY OF PRESENT ILLNESS: This is a 64-year-old female patient who was seen tonight because the nurses were concerned with the stroke. She is having weakness on the left side. I came and saw the patient, but the patient tells me this weakness is old. It appeared to be mostly concentrated in the left shoulder area. She said she is also weak in the left lower extremity, but I am not completely certain about it. I reviewed the records in the computer and this patient had a problem with the cervical spine. In fact, I saw this patient. The patient's memory is poor. I am not sure how good her memory is in her baseline. I will pull out the records from the [place] of tomorrow. REVIEW OF SYSTEMS: Positive for knee surgery, history of atrial fibrillation. She is on anticoagulation. She is in a assisted and I talked to the nurses here on the floor and they have talked to the assisted and they can give a good history, but the patient is pretty certain that the weakness is old and is mostly in the shoulder area. 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 She has a history of COVID now. She is on isolation. A 14-point review of system was carried out and I will summarize that in my note later on today also. PAST MEDICAL HISTORY: Positive for atrial fibrillation. FAMILY HISTORY: Unremarkable. SOCIAL HISTORY: As I understand, she came from the assisted. PHYSICAL EXAMINATION: Pretty limited. She is alert. She can talk. Her memory is poor. It looks poorer than I saw her last time, the best I remember. The best I can tell, a cranial nerve examination appears mostly noncontributory. She does have some problem with the muscles on the left arm towards the shoulder. She said it is old. She moves both sides in both lower extremities, but difficult to cooperate with the sensory examination. There is no meningeal sign. There is no carotid bruit. A blood pressure is running about 108/65, respirations 16, pulse is 79, temperature is 98.6. IMPRESSION: This patient does appear to have weakness on the left side. I do not know how old it is. She had similar weakness the [place] [address] CONSULTATION Name: ARIK LUKE Room: [address] IN .R.#: [id number] Admission: 04/15/20 Attend Phys: Flaca Marie Discharge: 04/17/20 Date of : 57 Report #: [id number] She is on anticoagulation, though she is not a t-PA candidate. I do not think she is any candidate for any intervention. Her GFR is only 18 and even if we use some dye, it is likely to shut down the kidneys. In these circumstances, the best is to stay conservative in this patient, even last time her examination was pretty variable and difficult to tell. I will pull out the record from [facility] and see what else we need to do in this patient. Thank you very much for this referral. <ELECTRONICALLY SIGNED> By: Bruce Cabral MD 04/19/20 2114 0419 0613Bruce Cabral MD /nt
== END 2020-04-17 18:20 | DRG 177 ==
LOC: M.ERS 12:53 → M.TBA-ER 14:00 → M.2W 14:00
PROVIDERS: Emergency Medicine Emergency Medical Services; ADMIT Internal Medicine; ATTEND Internal Medicine
PROC: B548ZZA Ultrasonography of Superior Vena Cava, Guidance (ICD-10-PCS; principal; 2020-04-15)
PROC: 02HV33Z Insertion of Infusion Device into Superior Vena Cava, Percutaneous Approach (ICD-10-PCS; principal; 2020-04-15)
DX: U07.1 COVID-19 (principal); J96.00 Acute respiratory failure, unspecified whether with hypoxia or hypercapnia; J12.82 Pneumonia due to coronavirus disease 2019; N17.0 Acute kidney failure with tubular necrosis; G81.94 Hemiplegia, unspecified affecting left nondominant side; E78.00 Pure hypercholesterolemia, unspecified; I95.9 Hypotension, unspecified; I48.91 Unspecified atrial fibrillation; F17.210 Nicotine dependence, cigarettes, uncomplicated; E86.0 Dehydration; Z79.01 Long term (current) use of anticoagulants; Z90.49 Acquired absence of other specified parts of digestive tract; Z79.899 Other long term (current) drug therapy

== ENCOUNTER 2020-08-10 14:55 | Emergency (ER) | payer MEDICARE, MEDICAID ==
[~2020-08-10] VITALS: Ht 177.8 cm; Wt 93.4 kg
[~2020-08-10 14:55] MED LIST changes: +C-10001000 MG PO; +D3-200050 MCG PO; +DIGOX125 MCG PO; +IVERMECTIN3 MG PO; +ONE-DAILY MULT1 EAC1 PO; +PROCEL PO; +ZINC SULFATE220 MG PO; +ZOFRAN4 MG PO
[2020-08-10] MEDS ORDERED: SOTALOL 120 MG120 M1 PO (15:06)
[2020-08-10 15:26] LABS: ABSOLUTE EOSINOPHILS 0.3 thou/uL (0.0-0.7); ABSOLUTE LYMPHOCYTES 2.5 thou/uL (0.8-5.3); ABSOLUTE MONOCYTES 0.6 thou/uL (0.0-1.2); ABSOLUTE NEUTROPHILS 3.8 thou/uL (1.6-8.1); BASOPHILS 0.7 %; EOSINOPHILS 4.7 %; HEMATOCRIT 29.5 % (37.0-47.0); LYMPHOCYTES 34.8 %; MCH 31.4 pg (26.0-34.0); MCHC 33.7 g/dL (28.0-37.0); MCV 93.2 fL (80.0-100.0); MONOCYTES 7.9 %; MPV 8.5 fl. (7.2-11.1); NUCLEATED RBCS 0 /100WBC; PLATELET COUNT* 176 thou/uL (150-400); POLYS 51.9 %; RBC 3.17 mil/uL (4.20-5.00); RDW-CV 13.8 % (10.5-14.5); WBC 7.3 thou/uL (4.0-11.0)
[2020-08-10 15:32] LABS: CALCIUM 10.5 mg/dL (8.5-10.1); CREATININE 1.1 mg/dL (0.6-1.3); POTASSIUM 3.8 mmol/L (3.5-5.1)
[2020-08-10 15:40] LABS: ALBUMIN 3.2 g/dL (3.4-5.0); MAGNESIUM 1.8 mg/dL (1.8-2.4); TOTAL BILIRUBIN 0.3 mg/dL (<0.1-1.0); TOTAL PROTEIN 7.9 g/dL (6.4-8.2)
[2020-08-10] MEDS ORDERED: BACLOFEN 10MG T10 MG PO (15:57)
[2020-08-10] MEDS ORDERED: COLACE100 MG PO (15:58)
[2020-08-10] MEDS ORDERED: NYSTATIN1000000 UN TOP (16:00)
[2020-08-10] MEDS ORDERED: SENNA PLUS TAB1 EACH PO (16:00)
[2020-08-10 16:21] LABS: URINE BILIRUBIN NEGATIVE (Negative); URINE BLOOD NEGATIVE (Negative); URINE CLARITY CLEAR; URINE COLOR YELLOW; URINE GLUCOSE-RANDOM NEGATIVE (Negative); URINE KETONES NEGATIVE (Negative); URINE LEUKOCYTES-REFLEX TRACE (Negative); URINE NITRITE-REFLEX NEGATIVE (Negative); URINE PROTEIN NEGATIVE (Negative); URINE SPECIFIC GRAVITY <= 1.005 (1.005-1.030); URINE UROBILINOGEN 0.2 E.U./dl (0.2-1.0)
[2020-08-10 16:27] LABS: CASTS None Seen /LPF (None Seen); CRYSTALS None Seen /LPF (None Seen); MUCUS None Seen strn/LPF (None Seen); SQUAMOUS 0-3 Few /LPF (0-3); URINE RBC None Seen /HPF (0-2); URINE WBC-REFLEX 0-5 Rare /HPF (0-5)
[2020-08-10] MEDS ORDERED: SORINE 80 MG TA80 MG PO (17:26)
[2020-08-10 18:40] VITALS: BP 126/72
--- NOTE | 2020-08-11 12:47 | EKG ---
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1955 Requested By: Chitra Coffey Order Number: [id number] MD: Perez Penn Measurements Intervals [place] Rate: 47 P: 29 [place]: 187 QRS: 26 QRSD: 102 T: 21 QT: 491 QTc: 434 Interpretive Statements Sinus bradycardia Low voltage, precordial leads RSR' in V1 or V2, probably normal variant Borderline T abnormalities, anterior leads Compared to ECG 04/15/2020 13:01:52 RSR' in V1 or V2 now present T-wave abnormality now present Sinus rate has slowed Prolonged QT interval no longer present Electronically Signed On 08-11-2020 12:46:51 CDT by Perez Penn [email or web address] <ELECTRONICALLY SIGNED> By: Perez Penn MD, [facility] 08/11/20 1246 153 1532 Perez Penn MD, [facility] /EPI
== END 2020-08-10 18:42 | disposition home or self-care (01) ==
LOC: M.ERS 14:55
PROVIDERS: Nurse Practitioner Family
DX: R00.1 Bradycardia, unspecified (principal); Z20.822 Contact with and (suspected) exposure to COVID-19; R53.83 Other fatigue; E78.00 Pure hypercholesterolemia, unspecified; I48.91 Unspecified atrial fibrillation